=== PATIENT | female | born 1940 | race Caucasian/White ===

== ENCOUNTER 2018-12-11 06:53 | Inpatient (IN) | payer OTHER ==
[2018-12-04 09:14] LABS: ABSOLUTE BASOPHILS 0.1 thou/uL (0.0-0.2); ABSOLUTE EOSINOPHILS 0.1 thou/uL (0.0-0.7); ABSOLUTE LYMPHOCYTES 1.2 thou/uL (0.8-5.3); ABSOLUTE MONOCYTES 0.4 thou/uL (0.0-1.2); ABSOLUTE NEUTROPHILS 2.7 thou/uL (1.6-8.1); BASOPHILS 1.1 %; EOSINOPHILS 3.3 %; HEMATOCRIT 41.3 % (37.0-47.0); HEMOGLOBIN 13.9 gm/dL (12.0-15.0); LYMPHOCYTES 27.5 %; MCH 31.4 pg (26.0-34.0); MCHC 33.7 g/dL (28.0-37.0); MCV 93.2 fL (80.0-100.0); MONOCYTES 8.1 %; NUCLEATED RBCS 0 /100WBC; PLATELET COUNT* 220 thou/uL (150-400); RBC 4.43 mil/uL (4.20-5.00); RDW-CV 13.7 % (10.5-14.5); WBC 4.4 thou/uL (4.0-11.0)
[2018-12-04 09:22] LABS: APTT 26.1 Seconds (25.0-31.3); PROTIME 10.1 Seconds (9.20-11.50)
[2018-12-04 09:26] LABS: ALBUMIN 3.5 g/dL (3.4-5.0); CALCIUM 9.3 mg/dL (8.5-10.1); CREATININE 0.8 mg/dL (0.6-1.3); TOTAL BILIRUBIN 0.5 mg/dL (<0.1-1.0); TOTAL PROTEIN 7.5 g/dL (6.4-8.2)
[2018-12-04 10:34] LABS: ESR (SEDRATE) 20 mm/hr (0-30)
--- NOTE | 2018-12-04 13:35 | EKG ---
[place] [address] ELECTROCARDIOGRAM REPORT Name: TOYA ACUÑAEN SAMI Room: PRE [facility].#: [id number] Admission: Attend Phys: Tono Zafar, Discharge: Date of : 40 Report #: [id number] THIS REPORT FOR: //name// [facility] Test Date: 2018-12-04 Test Time: 09:28:47 Pat Name: SUSAN ACUÑA Department: Room: Gender: F Research Tech: : 1940 Requested By: Tono Zafar Order Number: [id number] Reading MD: Ok Whipple Measurements Intervals [place] Rate: 77 P: 64 [place]: 160 QRS: 44 QRSD: 86 T: 32 QT: 358 QTc: 406 Interpretive Statements Sinus rhythm No previous ECG available for comparison Electronically Signed On 12-04-2018 13:35:38 CDT by Ok Whipple [email or web address] <ELECTRONICALLY SIGNED> By: Ok Whipple MD, [facility] 12/04/18 1335 0928 0928 Ok Whipple MD, FACC /EPI
[2018-12-04 23:06] LABS: GLYCOHEMOGLOBIN (HGB A1C) 6.6 % (4.8-5.6)
[~2018-12-11] VITALS: Ht 152.4 cm; Wt 93.0 kg
[~2018-12-11 06:53] MED LIST: ALEVE220 MG PO; FLONASE 0.05%50 MCG NASAL; IBUPROFEN 200200 M1 PO; UNICOMPLEX M TA1 TA1 PO
[2018-12-11 09:05] VITALS: BP 163/87
[2018-12-11 17:42] VITALS: BP 159/70
--- NOTE | 2018-12-11 17:43 | OP ---
[address] [address] OPERATIVE REPORT Name: SUSAN ACUÑA Room: [address] IN .R.#: [id number] Admission: 12/11/18 Attend Phys: Tono Zafar, Discharge: Date of : 40 Report #: [id number] THIS REPORT FOR: //name// CC: Tono Hernandez DICTATED BY: Barak Dobson DO DATE OF SERVICE: 12/11/2018 DIAGNOSIS: Left knee degenerative joint disease. PROCEDURE PERFORMED: Left total knee arthroplasty. SURGEON: Tono Zafar DO. DOOR INSTALLER: Barak Dobson DO. ANESTHESIA: General, IV regional and local. ESTIMATED BLOOD LOSS: 100 mL. SPECIMENS: None. DRAINS: None. COMPLICATIONS: None. CONDITION: The patient is stable to PACU. ORTHOPEDIC IMPLANTS: 1. MicroPort 5 left medial pivot femoral component. 2. MicroPort 5 left tibia. 3. MicroPort 14 mm medial pivot articular insert. 4. MicroPort 35 mm all poly patella. INDICATIONS FOR PROCEDURE: The patient is a pleasant 78-year-old female with significant osteoarthritis of the left knee. She has tricompartmental degenerative change radiographically, has failed conservative measures drastically affecting her quality of life, and she was deemed to be a candidate for a total knee arthroplasty. All risks, benefits, complications, indications, alternatives were reviewed with the patient, and the patient wished to proceed. DESCRIPTION OF PROCEDURE: The patient was brought to the operative suite, placed on a well-padded table, given the benefits of general anesthesia. Left lower extremity was then sterilely prepped and draped in standard fashion. [place] [id number] OPERATIVE REPORT Name: SUSAN ACUÑA Room: [address] IN [facility].#: [id number] Admission: 12/11/18 Attend Phys: Tono Zafar, Discharge: Date of : 40 Report #: [id number] Timeout was taken to ensure correct patient, procedure, operative site and the antibiotics were given, everybody in the room was in agreeance. That time, a #10 blade scalpel was used to make anterior skin incision through skin and subcutaneous tissue. Second #10 blade was used to perform a medial parapatellar arthrotomy. Patella was everted. Drill was used to find intramedullary canal of the femur. A 12 mm distal femoral resection was taken with the guide set to a 5-degree valgus resection. We then sized the femur to a size 5 and with this pin in appropriate 3 degrees of external rotation, I made anterior and posterior cuts, followed by the anterior and posterior chamfer cuts. Once these cuts were made, osteophytes were removed from the posterior condyles with a curved osteotome. PCL was partially recessed as well as osteophytes and the notch was removed. We then went on to the tibia. Extramedullary tibial guide was placed in line with medial third tibial tubercle down the tibial crest. This was pinned into place with appropriate amount of slope and approximately 10 mm section at the high lateral side was taken. There was significant bone loss posteromedially. Once the tibia resurfaced, we sized the tibia to a size 5. We took medial osteophytes to help with suture balancing. We also pie crusted the MCL to help with our varus valgus balance. Once we were balanced in flexion and extension as well as varus valgus, we then went ahead and trialed a size 5 tibia with size 5 femur and ultimately up to a 14 mm articular insert once appropriate releases were made medially to correct the varus deformity. We used a saw to resurface the notch portion of the femur with the trial implant in place. We then resurfaced the patella freehand with the saw, sized it to a 35 mm, drilled 3 peg holes with this, we had excellent patellar tracking. We then removed the instruments, prepared the proximal tibia with a drill and punch, mixing at the back table. This was carried out in standard fashion, first with the tibia, followed by femur and patella. Clamp was applied to the patella, 14 mm articular insert was placed. We then irrigated the wound with tranexamic acid to sit in the wound for 5 minutes with the tourniquet deflated. Once cement was hard, we placed the final 14 mm articular insert, had excellent stability through range of motion with full range of motion present. At this point, we irrigated the wound once more. We closed the capsule with #1 Vicryl in exzslg-gl-tolou fashion, followed by running #1 Stratafix. We then subcutaneously closed with 2-0 Vicryl, followed by running 3-0 Stratafix and Dermabond glue. Mepilex dressing was applied followed by MISTY syed. The patient was awoken from anesthesia and brought to the PACU in stable condition. <ELECTRONICALLY SIGNED> By: Cyrus Jones DO 12/11/18 1743 [id number] 1228Tono Zafar DO /kristie
--- NOTE | 2018-12-11 17:47 | NUR ---
PATIENT ARRIVED TO UNIT AT APPROX 1300. ALERT AND ORIENTED X4. ASSESSMENT COMPLETED AND CHARTED. VSS ON ROOM AIR. FLUIDS AND ANTIBIOTICS INFUSED ORDERED. PAIN MANAGED WITH HYDROCODONE. PATIENT UP TO THE BEDSIDE COMMODE WITH WALKER AND GAIT BELT. VOIDING WITHOUT ISSUE. NO COMPLAINTS OF NAUSEA OR SOA. FALL PRECAUTIONS IN PLACE. CALL LIGHT WITHIN REACH. HOURLY ROUNDS COMPLETED. NURSING WILL CONTINUE TO MONITOR.
[2018-12-11 20:00] VITALS: BP 130/62
[2018-12-12] VITALS: BP 148/68
[2018-12-12 03:56] LABS: HEMATOCRIT 33.1 % (37.0-47.0); HEMOGLOBIN 11.4 gm/dL (12.0-15.0)
[2018-12-12 04:00] VITALS: BP 147/54
--- NOTE | 2018-12-12 04:10 | NUR ---
ASSUMED PATIENT CARE AT 1900. PATIENT ALERT AND ORIENTED TIMES FOUR. MINOR COMPLAINTS OF PAIN, CONTROLLED WITH NON-NARCOTIC PAIN MEDICATION THROUGH THE NIGHT. ABLE TO AMBULATE TO THE C WITH WALKER. IV PATENT. FALL RISK PRECAUTIONS IN PLACE. CHRONIC CONDITION NURSE AND HOURLY ROUNDING COMPLETED DOCUMENTED
[2018-12-12 07:56] VITALS: BP 145/72
--- NOTE | 2018-12-12 13:03 | NUR ---
RECIEVED O.T. EVAL AND TX. WILL DEFER TO P.T. AT THIS TIME. PLEASE ORDER FURTHER O.T. SERVICES IF NEEDED.
--- NOTE | 2018-12-12 14:00 | NUR ---
SPOKE WITH PT. SHE WAS ALERT AND ORIENTED. SHE LIVES WITH HER ,HE CAN ASSIST HER NEEDED. DAUGHTER IN LAW CAN HELP HER ALSO. SHE IS NORMALLY INDEPENDENT AT HOME. SHE HAS BORROWED A WALKER BUT DOESN'T HAVE WHEELS. [facility] KELSY'D HER TO HAVE A FWW AT DISCHARGE. FAXED ORDER TO HER AND PLACED ORIGINAL ON FRONT OF CHART. NOTIFIED [facility]/P.T.THAT THERAPY CAN GIVE PT.ONE AT DISCHARGE. PT.WOULD LIKE HOME HEALTH FIRST AT DISCHARGE. CHECKING WITH [facility] TO SEE IF THEY CAN ACCEPT HER INSURANCE. [facility]. PT.'S TOOK PRESCRIPTIONS FOR MEDICATIONS INCLUDING ELIQUIS. PLANS TO GO HOME TOMORROW.
[2018-12-12 15:54] VITALS: BP 145/72
[2018-12-12 16:06] LABS: HEPATITIS B SURFACE AG Negative (Negative); HIV-1/HIV-2 ANTIBODY Non Reactive (Non Reactive)
[2018-12-12 16:16] VITALS: BP 128/68
--- NOTE | 2018-12-12 16:30 | NUR ---
SHIFT NOTE - PT UP IN CHAIR FOR MOST OF THIS SHIFT. PT DOING WELL WITH THERAPIES. WILL CONTINUE TO MONITOR.
[2018-12-12 20:00] VITALS: BP 151/76
[2018-12-13 02:06] LABS: GLYCOHEMOGLOBIN (HGB A1C) 6.6 % (4.8-5.6)
[2018-12-13 04:33] LABS: HEMATOCRIT 30.7 % (37.0-47.0); HEMOGLOBIN 10.6 gm/dL (12.0-15.0)
--- NOTE | 2018-12-13 06:12 | NUR ---
this nurse assumes care of pt 12/12/1288 at 1930, pt is alert and oriented x4, pleasant mood, pt complains of pain 03/14 with increased swelling to rt knee at bedtime, ice applied and pt medicated with iv pain medications, pt reports feeling "much better" and that she was able to "get some rest", pt up to bsc with assist x1, pt has questions about wheather or not she should continue taking both naproxen and ibuprofen daily upon discharge, she plans to discuss this with the physician prior to discharge, pt expresses no other complaints or concerns, plans to participate in PT today and continue pain management
[2018-12-13 07:40] VITALS: BP 130/66
[2018-12-13 16:00] VITALS: BP 139/56
--- NOTE | 2018-12-13 16:29 | NUR ---
ASSUMED CARE OF PATIENT AT APPROX 0730. ALERT AND ORIENTED X4. ASSESSMENT COMPLETED AND CHARTED. VSS ON ROOM AIR. PAIN HAS BEEN MANAGED WITH HYDROCODONE THIS SHIFT. PATIENT WORKED WITH THERAPIES AND PROGRESSED TOWARD GOALS. PLANS OF GOING HOME TOMORROW AFTERNOON WITH HOME HEALTH. FALL PRECAUTIONS IN PLACE. CALL LIGHT WITHIN REACH. HOURLY ROUNDS COMPLETED. NURSING WILL CONTINUE TO MONITOR.
[2018-12-13 20:00] VITALS: BP 156/68
[2018-12-14 07:40] VITALS: BP 147/61
[2018-12-14] MEDS ORDERED: ELIQUIS5 MG PO (09:02)
[2018-12-14] MEDS ORDERED: HYDROCODON-ACE1 EAC7 PO (09:02)
[2018-12-14] MEDS ORDERED: COLACE 100 MG100 MG PO (09:02)
--- NOTE | 2018-12-14 14:58 | NUR ---
ASSUMED CARE OF PATIENT AT APPROX 0730. ALERT AND ORIENTED X4. ASSESSMENT COMPLETED AND CHARTED. VSS ON ROOM AIR. PAIN HAS BEEN MANAGED WITH HYDROCODONE EVERY 4 HOURS. PATIENT UP TO BEDSIDE COMMODE WITH WALKER AND GAIT BELT. UP TO THE CHAIR THIS MORNING AND THROUGHOUT THE AFTERNOON. PATIENT DISCHARGED AT 1500 WITH ALL PERSONAL BELONGINGS AND DISCHARGE INFORMATION. PRESCRIPTIONS ALREADY TAKEN AND PICKED UP BY DAY OF SURGERY.
--- NOTE | 2018-12-15 08:32 | NUR ---
CALLED TO CONFIRM WITH [facility] AT HOME THAT DC ORDERS WERE RECEIVED, THEY WERE NOT. FAXED DC ORDERS TO THEM
== END 2018-12-14 15:00 | disposition home health service (06) | DRG 470 ==
LOC: M.SUR 06:53 → M.ORTHSURG 12:30 → M.SUR 14:07 → M.ORTHSURG 12-14 15:00
PROVIDERS: Orthopaedic Surgery; ADMIT Internal Medicine
PROC: 0SRD0J9 Replacement of Left Knee Joint with Synthetic Substitute, Cemented, Open Approach (ICD-10-PCS; principal; 2018-12-11)
DX: M17.12 Unilateral primary osteoarthritis, left knee (principal); J30.2 Other seasonal allergic rhinitis; K21.9 Gastro-esophageal reflux disease without esophagitis; R73.9 Hyperglycemia, unspecified; Z96.1 Presence of intraocular lens; Z88.2 Allergy status to sulfonamides; Z91.048 Other nonmedicinal substance allergy status; Z79.899 Other long term (current) drug therapy; Z98.49 Cataract extraction status, unspecified eye